=== PATIENT | male | born 1990 | race Caucasian/White ===

== ENCOUNTER → 2016-11-02 | Outpatient (CLI) | payer OTHER ==
[~2016-11-02] MED LIST: ALBU18HF INH; HYDR-3138 PO; HYDR-3240; ONDA4TAB7
== END | disposition home or self-care (01) ==
LOC: CFH 07:16
PROVIDERS: ATTEND Family Medicine Sports Medicine
DX: M79.662 Pain in left lower leg (principal); M25.551 Pain in right hip; M79.661 Pain in right lower leg; M25.552 Pain in left hip; T79.8XXA Other early complications of trauma, initial encounter

== ENCOUNTER 2017-02-05 16:23 | Emergency (ER) | payer OTHER ==
[~2017-02-05] VITALS: Ht 165.1 cm; Wt 81.4 kg
[2017-02-05] MEDS ORDERED: SODIUM CHLORIDE 0.9% 1,000 ML IV ONE (16:41)
[2017-02-05] MEDS ORDERED: FAMOTIDINE 20 MG/2 ML IVP ONE (17:00)
[2017-02-05] MEDS ORDERED: SODIUM CHLORIDE 0.9% 1,000ML IVBOLUS ONE (17:00)
[2017-02-05] MEDS ORDERED: ONDANSETRON 2MG/ML, 2ML IVPush ONE (17:00)
[2017-02-05 17:30] LABS: ASPARTATE AMINO TRANSFERASE 23 U/L (15-37); BLOOD UREA NITROGEN 13 mg/dL (7-18)
[2017-02-05] MEDS ORDERED: FAMOTIDINE 20 MG/2 ML ONE (19:36)
[2017-02-05] MEDS ORDERED: ONDANSETRON 2MG/ML, 2ML ONE (19:36)
[2017-02-05] MEDS ORDERED: DIPHENHYDRAMINE 50 MG/ML, 1ML ONE (19:36)
[2017-02-05] MEDS ORDERED: DIPHENHYDRAMINE 50 MG/ML, 1ML IVPush ONE (20:00)
[2017-02-05 21:44] VITALS: BP 106/73
== END 2017-02-05 22:18 | disposition home or self-care (01) ==
LOC: ED 22:00
DX: K52.9 Noninfective gastroenteritis and colitis, unspecified (principal)
CPT/HCPCS: 36415; 74022; 80053; 81001; 83690; 85025; 96361; 96374; 96375; 99285; J1200; J2405; J7030; S0028

== ENCOUNTER 2017-02-07 11:12 | Emergency (ER) | payer OTHER ==
[~2017-02-07] VITALS: Ht 165.1 cm; Wt 82.8 kg
[2017-02-07] MEDS ORDERED: FAMOTIDINE 20 MG/2 ML IVP ONE (13:00)
[2017-02-07] MEDS ORDERED: SODIUM CHLORIDE 0.9% 1,000ML IVBOLUS ONE (13:00)
[2017-02-07] MEDS ORDERED: METOCLOPRAMIDE 5 MG/ML, 2ML IVPush ONE (13:00)
[2017-02-07 13:13] LABS: ASPARTATE AMINO TRANSFERASE 30 U/L (15-37); BLOOD UREA NITROGEN 9 mg/dL (7-18)
[2017-02-07] MEDS ORDERED: FAMOTIDINE 20 MG/2 ML ONE (13:27)
[2017-02-07] MEDS ORDERED: METOCLOPRAMIDE 5 MG/ML, 2ML ONE (13:27)
[2017-02-07] MEDS ORDERED: SODIUM CHLORIDE 0.9% 1,000 ML IV ONE (14:00)
[2017-02-07 14:21] VITALS: BP 108/63
== END 2017-02-07 14:43 | disposition home or self-care (01) ==
LOC: ED 14:11
DX: R19.7 Diarrhea, unspecified (principal); R11.2 Nausea with vomiting, unspecified
CPT/HCPCS: 36415; 76700; 80053; 81003; 83690; 85025; 96361; 96374; 96375; 99285; J2765; J7030; S0028